=== PATIENT | female | born 1975 | race African-American/Black ===

== ENCOUNTER 2016-12-06 05:10 | Emergency (ER) | payer MEDICAID, OTHER ==
[~2016-12-06] VITALS: Ht 177.8 cm; Wt 65.3 kg
[2016-12-06] MEDS ORDERED: NKM (05:21)
[2016-12-06 05:45] VITALS: BP 101/69
[2016-12-06] MEDS ORDERED: ATIVAN0.5 MG ORAL (05:48)
--- NOTE | 2016-12-06 05:48 | Emergency Room Report ---
History of Present Illness General Chief Complaint: Pain Source: Patient Present Illness HPI This is a 41-year-old female with history anxiety. She presents with chief complaint of feeling anxious and feeling nauseous. This occur after eating a brownie that had marijuana. She felt numbness to her whole body. [place] some pain in her abdomen. [place] very nauseous. This occurred around midnight. She is better now. Still anxious. She drove here. Allergies: Coded Allergies: No Known Allergies (Unverified , 12/06/16) Patient History Past Medical History: see triage record, old chart reviewed Past Surgical History: none Pertinent Family History: none Social History: Denies: smoking Last Menstrual Period: Nov Now: No Immunizations: other Reviewed Nursing Documentation: PMH: Agreed, PSxH: Agreed Nursing Documentation-PMH Past Medical History: No Stated History Review of Systems Eye: Denies: blurred vision, eye pain ENT: Denies: ear pain, nose congestion, throat swelling Respiratory: Denies: cough, shortness of breath Cardiovascular: Denies: chest pain, palpitations Gastrointestinal: Denies: abdominal pain, diarrhea, nausea, vomiting Musculoskeletal: Denies: back pain, joint pain Skin: Denies: rash Neurological: Denies: headache, numbness Endocrine: Denies: increased thirst, increased urine Hematologic/Lymphatic: Denies: easy bruising All Other Systems: negative except mentioned in HPI Physical Exam Vital Signs Date Time Temp Pulse Resp B/P Pulse Ox O2 Delivery O2 Flow Rate FiO2 12/06/16 05:15 97.5 104 18 116/82 100 Room Air vitals normal Sp02 EP Interpretation: reviewed, normal General Appearance: well appearing, no apparent distress, alert Head: normocephalic, atraumatic Eyes: bilateral eye EOMI, bilateral eye PERRL ENT: hearing grossly normal, normal pharynx Neck: full range of motion, supple, no meningismus Respiratory: chest non-tender, lungs clear, normal breath sounds Cardiovascular #1: regular rate, rhythm, no murmur Gastrointestinal: normal bowel sounds, non tender, no mass, no organomegaly, no bruit, non-distended Musculoskeletal: back normal, gait/station normal, normal range of motion Psychiatric: mood/affect normal Skin: warm/dry Medical Decision Making Diagnostic Impression: Primary Impression: Adverse reaction to cannabis Qualified Codes: T40.7X5A - Adverse effect of cannabis (derivatives), initial encounter Additional Impression: Anxiety ER Course Patient presents with adverse reaction to marijuana. She also has anxiety. Much better now. We'll discharge home with reassurance. I see no need for further workup. Abdomen is soft. No evidence of obstruction or acute abdomen. No pain. Is no urinary complaint. Last Vital Signs Date Time Temp Pulse Resp B/P Pulse Ox O2 Delivery O2 Flow Rate FiO2 12/06/16 05:15 97.5 104 18 116/82 100 Room Air Status: improved Disposition: HOME, SELF-CARE Condition: Stable Scripts Lorazepam* (ATIVAN*) 0.5 Mg Tablet 0.5 MG ORAL THREE TIMES A DAY, #15 TAB Prov: JERRY MAURER M.D. 12/06/16 Additional Instructions: Followup with your DrAbeba in 7 days as needed. Return if symptom worsen. JERRY MAURER M.D. Dec 06, 2016 05:48
[2016-12-06 05:52] VITALS: BP 101/69
== END 2016-12-06 05:50 | disposition home or self-care (01) ==
LOC: EMR 05:49
DX: F41.9 Anxiety disorder, unspecified (principal); T40.7X5A Adverse effect of cannabis (derivatives), initial encounter; X58.XXXA Exposure to other specified factors, initial encounter; Y92.9 Unspecified place or not applicable; Y99.8 Other external cause status
CPT/HCPCS: 99283